=== PATIENT | female | born 1980 | race Caucasian/White ===

== ENCOUNTER → 2018-07-19 | Outpatient (CLI) | payer MEDICAID ==
[~2018-07-19] MED LIST: DHA PO; FOLIC ACID800 MCG PO; LEVAMIR IJ; MOTRIN 600600 MG/TAB PO; NO HOME MEDICATIONS; NOVOLOG FLEX100 U/ML SC; PERCOCET 325 MG1 TA2 PO; PREVACID 15MG15 M1 PO; TUMS500 MG PO
== END ==
LOC: MC.RAD 08:40
DX: N64.59 Other signs and symptoms in breast (principal)
CPT/HCPCS: G0279

== ENCOUNTER 2019-06-14 21:29 | Emergency (ER) | payer MEDICAID ==
[~2019-06-14] VITALS: Ht 165.1 cm; Wt 84.1 kg
[2019-06-14 21:35] VITALS: TEMP 98.4
[2019-06-14 22:08] LABS: COLLECTION METHOD CLEAN CATCH
[2019-06-14 22:15] LABS: BASO # 0.1 (0.0-0.2); BASO % 0.6 % (0.0-2.0); EOS # 0.1 (0.0-0.7); EOS % 0.6 % (0-4.0); GRAN # 8.1 (1.4-6.5); GRAN % 66.4 % (42.2-75.2); HEMATOCRIT 37.2 % (37.0-47.0); HEMOGLOBIN 12.5 g/dl (12.5-16.0); LYMPH # 3.1 (1.2-3.4); LYMPH % 25.5 % (20.0-51.0); MEAN CELL VOLUME 88 fl (80.0-100.0); MEAN CORPUSCULAR HEMOGLOBIN 30 pg (27.0-31.0); MEAN CORPUSCULAR HGB CONC 34 g/dl (33.0-37.0); MEAN PLATELET VOLUME 9.6 fl (7.4-10.4); MONO # 0.8 (0.1-0.6); MONO % 6.7 % (1.7-9.3); PLATELET COUNT 320 K/mm3 (130-400); RED BLOOD COUNT 4.23 M/mm3 (4.10-5.30); REDCELL DISTRIBUTION WIDTH-CV 13.7 % (11.5-14.5)
[2019-06-14 22:18] LABS: MUCOUS Present /lpf; PH 5 (5-8); URINE APPEARANCE Clear; URINE BACTERIA Rare /hpf; URINE BILIRUBIN Negative (NEGATIVE); URINE BLOOD Negative (NEGATIVE); URINE COLOR Red; URINE GLUCOSE Negative (NEGATIVE); URINE KETONE Negative (NEGATIVE); URINE LEUKOCYTE ESTERASE Negative (NEGATIVE); URINE NITRATE Positive (NEGATIVE); URINE PROTEIN(semi-quant) 1+ (NEGATIVE); URINE UROBILINOGEN >=4.0 mg/dL (NEGATIVE)
[2019-06-14 22:25] LABS: ALANINE AMINOTRANSFERASE 19 U/L (9-52); ALBUMIN 3.9 gm/dL (3.5-5.0); ALKALINE PHOSPHATASE 47 U/L (50-136); ANION GAP 8 mmol/L (7-16); AST,SGOT 14 U/L (15-37); BILIRUBIN,TOTAL 0.2 mg/dL (0.0-1.0); BLOOD UREA NITROGEN 8 mg/dL (7-17); C-REACTIVE PROTEIN < 0.5 mg/dL (0.0-0.9); CALCIUM 8.6 mg/dL (8.4-10.2); CARBON DIOXIDE 22 mmol/L (22-30); CHLORIDE 109 mmol/L (98-107); CREATININE, serum 0.55 (0.52-1.25); GLUCOSE 117 mg/dL (74-106); LIPASE 70 U/L (23-300); POTASSIUM 3.4 mmol/L (3.4-5.0); SODIUM 139 mmol/L (137-145); TOTAL PROTEIN 7.1 gm/dL (6.4-8.2)
[2019-06-14 23:37] LABS: HCG,QUANTITATIVE 60997 mIU/mL (0-5)
[2019-06-14] MEDS ORDERED: CEPHALEXIN500 M1 PO ×2 (23:39)
[2019-06-14] MEDS ORDERED: CEFTIN500 MG PO (23:39)
[2019-06-14] MEDS ORDERED: PHENERGAN 25 TA25 MG PO (23:39)
[2019-06-14 23:48] VITALS: BP 122/81; PULSE 70
== END 2019-06-14 23:48 | disposition home or self-care (01) ==
LOC: COL.ER 21:29
PROVIDERS: Emergency Medicine
DX: O23.91 Unspecified genitourinary tract infection in pregnancy, first trimester (principal); O99.341 Other mental disorders complicating pregnancy, first trimester; F32.9 Major depressive disorder, single episode, unspecified; F41.9 Anxiety disorder, unspecified; Z3A.01 Less than 8 weeks gestation of pregnancy; Z90.89 Acquired absence of other organs
CPT/HCPCS: A4216; J0696

== ENCOUNTER → 2019-12-25 | Outpatient (CLI) | payer MEDICAID ==
[~2019-12-25] MED LIST changes: +CEFTIN500 MG PO; +CEPHALEXIN500 M1 PO; +PHENERGAN 25 TA25 MG PO
== END ==
LOC: DIA.ED 12-11 08:19
DX: O24.419 Gestational diabetes mellitus in pregnancy, unspecified control (principal)
CPT/HCPCS: G0108

== ENCOUNTER → 2020-01-08 | Outpatient (CLI) | payer MEDICAID | LOC: DIA.ED 15:28 | DX: O24.419 Gestational diabetes mellitus in pregnancy, unspecified control (principal) | CPT/HCPCS: G0108 ==

== ENCOUNTER 2020-01-29 06:19 | Outpatient (CLI) | payer MEDICAID ==
[~2020-01-29] VITALS: Ht 165.1 cm; Wt 94.5 kg
[~2020-01-29 06:19] MED LIST changes: -FERRO-TIME325 MG PO; -IBU800 M1 PO; -PEPCID 20MG TAB20 MG PO; -PRENATAL TABLET PO; -ZOLOFT 50MG50 MG PO
--- NOTE | 2020-01-29 06:25 | NUR ---
06- Pt arrives on unit ambulatory with complaints of contractions since yesterday that got stronger overnight. Pt into bathroom, changes into gown. 06- Pt into bed, EFM and TOCO on and tracing. VSS. Assessment completed. Plan of care explained, Pt denies questions, Call light within reach.
[2020-01-29 06:34] VITALS: BP 124/79; PULSE 76; TEMP 97.9
[2020-01-29] MEDS ORDERED: PEPCID 20MG TAB20 MG PO (06:39)
[2020-01-29] MEDS ORDERED: ZOLOFT 50MG50 MG PO (06:39)
[2020-01-29] MEDS ORDERED: FERRO-TIME325 MG PO (06:39)
[2020-01-29] MEDS ORDERED: PRENATAL TABLET PO (06:40)
[2020-01-29 07:00] VITALS: BP 124/75; PULSE 60
[2020-01-29 07:30] VITALS: BP 125/80; PULSE 52
[2020-01-29 07:54] VITALS: BP 118/78; PULSE 82
--- NOTE | 2020-01-29 08:10 | NUR ---
0754- Discharge plan explained, questions answered. EFM and TOCO off. Pt up to change into street clothes. 0810- Dishcharge paperwork given and explained. Pt denies questions. Ambulates off unit in stable condition.
== END 2020-01-29 08:10 | disposition home or self-care (01) ==
LOC: LDRO 06:19
DX: O62.9 Abnormality of forces of labor, unspecified (principal); Z3A.38 38 weeks gestation of pregnancy

== ENCOUNTER → 2020-01-29 | Outpatient (CLI) | payer MEDICAID ==
[~2020-01-29] MED LIST changes: +FERRO-TIME325 MG PO; +IBU800 M1 PO; +PEPCID 20MG TAB20 MG PO; +PRENATAL TABLET PO; +ZOLOFT 50MG50 MG PO
== END ==
LOC: ZCOL.LAB
DX: Z20.828 Contact with and (suspected) exposure to other viral communicable diseases (principal)

== ENCOUNTER 2020-02-02 06:40 | Inpatient (IN) | payer MEDICAID ==
[~2020-02-02] VITALS: Ht 165.1 cm; Wt 91.4 kg
[2020-02-02] VITALS (19 sets, daily range): BP systolic 113–136; BP diastolic 43–90; PULSE 50–90; TEMP 97.6–98.4
[~2020-02-02 06:40] MED LIST changes: +FERRO-TIME325 MG PO; +PEPCID 20MG TAB20 MG PO; +PRENATAL TABLET PO; +ZOLOFT 50MG50 MG PO
[2020-02-02 10:16] LABS: BASO # 0.1 (0.0-0.2); BASO % 0.7 % (0.0-2.0); EOS % 0.3 % (0-4.0); GRAN % 67.1 % (42.2-75.2); LYMPH # 1.9 (1.2-3.4); LYMPH % 25.2 % (20.0-51.0); MEAN CELL VOLUME 89 fl (80.0-100.0); MEAN CORPUSCULAR HEMOGLOBIN 28 pg (27.0-31.0); MEAN CORPUSCULAR HGB CONC 31 g/dl (33.0-37.0); MEAN PLATELET VOLUME 11.7 fl (7.4-10.4); MONO # 0.5 (0.1-0.6); MONO % 6.4 % (1.7-9.3); PLATELET COUNT 216 K/mm3 (130-400); RED BLOOD COUNT 3.92 M/mm3 (4.10-5.30); REDCELL DISTRIBUTION WIDTH-CV 16.1 % (11.5-14.5)
--- NOTE | 2020-02-02 12:00 | NUR ---
1200-A&O X4, IV to left wrist. Peralta to DD, clear yellow urine. Abdominal dressing C/D/I. Fundal massage firm. Lochia WNL, binder to abdomen. Recieved report from GIOVANY Mccabe. Updated patient on plan of care. Assessment complete. VSS, see pacu flow record.
[2020-02-03 01:00] VITALS: BP 113/61; PULSE 59; TEMP 98.1
[2020-02-03 04:00] VITALS: BP 117/60; PULSE 45; TEMP 98.4
[2020-02-03 07:50] VITALS: BP 134/74; PULSE 55; TEMP 98.2
[2020-02-03 16:30] VITALS: BP 121/68; PULSE 62; TEMP 97.8
[2020-02-03 21:00] VITALS: BP 128/69; PULSE 66; TEMP 98.3
[2020-02-04 09:00] VITALS: BP 151/72; PULSE 51; TEMP 97.9
[2020-02-04 09:50] VITALS: BP 152/76; PULSE 58
[2020-02-04 11:00] VITALS: BP 143/77
[2020-02-04 11:15] VITALS: BP 146/80
[2020-02-04 11:30] VITALS: BP 142/72
[2020-02-04] MEDS ORDERED: PERCOCET 325 MG1 TA2 PO (11:51)
[2020-02-04] MEDS ORDERED: IBU800 M1 PO (11:51)
[2020-02-04 12:00] VITALS: BP 136/79
== END 2020-02-04 12:20 | disposition home or self-care (01) | DRG 788 ==
LOC: OB 06:40
PROVIDERS: ADMIT Obstetrics & Gynecology
PROC: 10D00Z1 Extraction of Products of Conception, Low, Open Approach (ICD-10-PCS; principal; 2020-02-02)
DX: O34.211 Maternal care for low transverse scar from previous cesarean delivery (principal); O99.344 Other mental disorders complicating childbirth; O99.214 Obesity complicating childbirth; E66.9 Obesity, unspecified; Z3A.39 39 weeks gestation of pregnancy; Z37.0 Single live birth; F43.10 Post-traumatic stress disorder, unspecified; F41.9 Anxiety disorder, unspecified; F32.9 Major depressive disorder, single episode, unspecified; O24.420 Gestational diabetes mellitus in childbirth, diet controlled
CPT/HCPCS: J0690; J1885; J2175; J2370; J2405; J2550; J2590; J2765; J7120

== ENCOUNTER → 2020-02-19 | Outpatient (CLI) | payer MEDICAID ==
[~2020-02-19] MED LIST changes: +IBU800 M1 PO
--- NOTE | 2020-02-19 13:08 | NUR ---
Pt, Tushar Leblanc, presents for outpatient latctation consult with 17 day old baby boy, Ishaan "Kevin" Africaerrol and HALLE. They are being seen because of a concern about Kevin gaining too much weight based on his appointment with Dr. Odom on 02/14/20. Kevin was born on 02/02/2020 and weighed 8#14.9oz (4050 gms). Discharge weight was 8#5oz (3785 gms). Kevin was seen by Dr. Freed on 02/14/2020 and reportedly weighed 9#8.6oz. The family was advised to reduce feeding volume because of the significant increase in weight, and follow up with this LC. LC visited with family on 02/14/2020 by telephone and advised trying block feeding, or single side feedings until this appointment. Today Kevin weighs 8#9.8oz (3906gms), which is inconsistent from the previous known weight. verifies scale accuracy with approved weight and Kevin re-weighs the same. Voids and stools are WNL, with some stools being green and some yellow. Kevin had a gain of 2.7 oz (76 gms) from the left breast, and 0.6oz from the right breast for a total intake of 3.3oz. While being held upright he does have a burp that sounded like there was some milk coming up with it, but he kept it down. Concerns noted by the family include acid reflux as Kevin is noted to have behaviour like he is spitting up but swallows it back down. This can happen even 1.5 hours after feeding. They currently work on keeping Kevin upright at least 30 minutes to minimize reflux or vomiting. Also of note, while Kevin was nursing he struggled with stridor while coordinating suck/swallow/breathe. No color change was observed but he did release and have to catch his breathing up during the feeding. This may cause an increase in air swallowing while nursing. POC: Return to "normal" , working on emptying the first breast thoroughly before moving to the second side. Continue keeping Kevin upright after feedings. F/U: Pt states she will make an appointment to be seen at [facility] for the reflux. She will report weight back to this LC. Questions invited and answered.
== END ==
LOC: LAC 12:33
DX: Z39.1 Encounter for care and examination of lactating mother (principal); Z71.89 Other specified counseling